=== PATIENT | female | born 1945 | race Caucasian/White ===

== ENCOUNTER → 2017-10-18 | Outpatient (CLI) | payer OTHER ==
[~2017-10-18] MED LIST: (NONE)10 MG; ATIVAN1 MG PO; BUDEPRION XL300 MG; CIPRO250 MG PO; CYMBALTA60 MG; DARVOCET N 1001 TAB PO; GABAPENTIN300 MG; MULTIVITAMINS1 TA1; NEXIUM40 MG; OXYCODONE AND A1 T13; OYSTER CALCIUM1 TA3; OYSTER SHELL 51 EACH PO; PLAVIX75 MG; RESTORIL30 M1 PO; SIMVASTATIN40 MG; SYNTHROID,LEVO75 MCG; Synthroid,Lev100 MCG PO; TRIAMCINOLONE0.5%; VITAMIN D50000 I2; VITAMIN D50000 I3 PO; ZOFRAN ODT4 MG SL
== END | disposition home or self-care (01) ==
LOC: RAD 12:02
DX: R06.02 Shortness of breath (principal); R05 Cough; R09.89 Other specified symptoms and signs involving the circulatory and respiratory systems; R06.2 Wheezing

== ENCOUNTER → 2018-10-27 | Outpatient (CLI) | payer MEDICARE, OTHER ==
[~2018-10-27] MED LIST changes: +ASPIRIN ADULT L81 M1 PO; +OXYBUTYNIN10 MG PO; +PRILOSEC20 M1 PO
[2018-10-27 11:48] LABS: HEMATOCRIT 46.2 % (37.0-47.0); HEMOGLOBIN 13.9 g/dl (12.0-16.0); MEAN CELL VOLUME 95.1 fl (81.0-99.0); MEAN CORPUSCULAR HGB 28.6 pg (27.0-31.0); MEAN CORPUSCULAR HGB CONC 30.1 g/dl (33.0-37.0); MEAN PLATELET VOLUME 10.4 fl (9.6-12.3); RED BLOOD COUNT 4.86 10*6/uL (4.10-5.10); RED CELL DISTRI WIDTH 16.3 % (0-14.5); WHITE BLOOD COUNT 7.1 10*3/uL (4.8-10.8)
[2018-10-27 12:19] LABS: BUN 26 mg/dl (7-24); CHLORIDE 107 mmol/L (98-107); CHOLESTEROL 170 mg/dL (<200); CREATININE 1.06 mg/dL (0.55-1.02); POTASSIUM 4.3 mmol/L (3.5-5.1); SGOT/AST 18 IU/L (3-35); SGPT/ALT 23 U/L (12-78); SODIUM 144 mmol/L (136-145); TRIGLYCERIDES 88 mg/dl (<150); VLDL CHOLESTEROL 18 mg/dL (6-40)
[2018-10-27 12:29] LABS: ALKALINE PHOSPHATASE 85 U/L (45-117); HDL CHOLESTEROL 56 mg/dl (40-60); LDL CHOLESTEROL 96 mg/dL (9-159); TOTAL PROTEIN 7.2 gm/dL (6.4-8.2)
[2018-10-27 12:52] LABS: FREE T4 0.98 ng/dl (0.76-1.46)
== END | disposition home or self-care (01) ==
LOC: LAB 10:32
PROVIDERS: Physician Assistant
DX: E03.9 Hypothyroidism, unspecified (principal); E66.01 Morbid (severe) obesity due to excess calories; D51.0 Vitamin B12 deficiency anemia due to intrinsic factor deficiency; F41.9 Anxiety disorder, unspecified; M79.2 Neuralgia and neuritis, unspecified; Z72.0 Tobacco use; Z79.899 Other long term (current) drug therapy

== ENCOUNTER → 2019-01-19 | Outpatient (CLI) | payer MEDICARE, OTHER ==
--- NOTE | ~2019-01-19 | ST ---
[place], [place] EXERCISE STRESS TEST REPORT NAME[id number] UNIT #: [id number] ROOM: DOCTOR: KINZA ALMENDAREZ BIRTHDATE: [birth year] DOS: 01/19/2019 STRESS TEST REPORT INDICATIONS: Chest pain. PROTOCOL: Regadenoson SPECT myocardial perfusion imaging. Baseline EKG showed sinus rhythm with a rate of 62 beats per minute. Normal axis, normal intervals and no resting ST changes. Baseline blood pressure 150/72. A 0.4 mg of regadenoson was injected per protocol followed by radioisotope injection. The patient reported some shortness of breath, but no chest pain was noted. Stress EKG showed no evidence of ischemia and no arrhythmias were noted. There was rare PVC. IMPRESSION: 1. No evidence of regadenoson-induced ischemia on stress EKG. 2. Resting hypertension. 3. Nuclear images to be reported separately. Dr. KINZA ALMENDAREZ MD CM:STRESS:EXERCISE STRESS TEST REPORT [id number] KINZA ALMENDAREZ
--- NOTE | 2019-01-19 11:05 | NUR ---
INFORMED SIGNED CONSENT OBTAINED FOR LEXISCAN STRESS TEST WITH DR ALMENDAREZ. RESTING EKG NSR 62 BP 150/72. PULSE OX 95% LUNGS CLEAR. PT COMPLETED ONE MINUTE OF A LEXISCAN PROTOCOL WITH PT RECEIVING LEXISCAN 0.4 MG IV OVER 10 SECONDS. PVC AND NON DIAGNOSTIC ST CHANGES SEEN. PT C/O SOB WITH INJECTION. LAST RECOVERY HR OF 92 BP 126/68. PT IN STABLE CONDITION, AWIATING NUCLEAR IMAGES.
== END | disposition home or self-care (01) ==
LOC: CARD 01-16 09:30
DX: R07.89 Other chest pain (principal)

== ENCOUNTER → 2020-05-17 | Outpatient (CLI) | payer OTHER ==
[2020-05-17 12:15] LABS: ALBUMIN 2.5 gm/dl (3.1-4.5); BILIRUBIN, DIRECT 1.6 mg/dL (0.0-0.2); TOTAL PROTEIN 7.7 gm/dL (6.4-8.2)
[2020-05-20 05:07] LABS: HEP B CORE AB, IGM Negative (Negative); HEPATITIS B SURFACE AG Negative (Negative); HEPATITIS C VIRUS ANTIBODY 0.1 s/co (0.0-0.9)
== END | disposition home or self-care (01) ==
LOC: US 05-11 08:30 → LAB 10:23 → US 10:30
PROVIDERS: ATTEND Physician Assistant
DX: N28.1 Cyst of kidney, acquired (principal); R53.83 Other fatigue; R74.8 Abnormal levels of other serum enzymes; N18.30 Chronic kidney disease, stage 3 unspecified

== ENCOUNTER → 2020-09-09 | Outpatient (CLI) | payer OTHER ==
[2020-09-09 14:47] LABS: BASO # 0.1 10*3/uL (0.0-0.1); BASO % 0.8 % (0.0-1.0); EOS # 0.2 10*3/uL (0.0-0.4); EOS % 1.8 % (1.0-4.0); LYMPH # 1.7 10*3/uL (1.3-4.4); LYMPH % 16.9 % (27.0-41.0); MEAN CELL VOLUME 98.6 fl (81.0-99.0); MEAN CORPUSCULAR HGB 30.5 pg (27.0-31.0); MEAN PLATELET VOLUME 10.8 fl (9.6-12.3); MONO # 0.6 10*3/uL (0.1-1.0); MONO % 6.2 % (3.0-9.0); NEUT # 7.2 10*3/uL (2.3-7.9); NEUT % 73.8 % (47.0-73.0); PLATELET COUNT AUTOMATED 349 10*3/uL (130-400); RED BLOOD COUNT 4.26 10*6/uL (4.10-5.10); RED CELL DISTRI WIDTH 17.3 % (0-14.5); WHITE BLOOD COUNT 9.8 10*3/uL (4.8-10.8)
[2020-09-09 15:25] LABS: BILIRUBIN, DIRECT 5.6 mg/dL (0.0-0.2); CREATININE 1.28 mg/dL (0.55-1.02); POTASSIUM 4.2 mmol/L (3.5-5.1); TOTAL PROTEIN 7.8 gm/dL (6.4-8.2)
[2020-09-10 06:07] LABS: HEPATITIS B SURFACE AG Negative (Negative)
== END | disposition home or self-care (01) ==
LOC: LAB 13:28 → US 15:00
PROVIDERS: ATTEND Nurse Practitioner Family
DX: K83.8 Other specified diseases of biliary tract (principal); Z11.59 Encounter for screening for other viral diseases; R17 Unspecified jaundice; R10.84 Generalized abdominal pain; M79.609 Pain in unspecified limb; Z79.899 Other long term (current) drug therapy; Z72.89 Other problems related to lifestyle